=== PATIENT | male | born 1965 | race African-American/Black ===

== ENCOUNTER 2018-04-28 17:25 | Inpatient (IN) | payer OTHER ==
[2018-04-28 18:33] VITALS: BMI 21.4
--- NOTE | 2018-04-28 20:48 | HP ---
CIWA Score Nausea/Vomitin-No Nausea/No Vomiting Muscle Tremors: None Anxiety: 1-Mildly Anxious Agitation: 4-Moderately Restless Paroxysmal Sweats: No Perspiration Orientation: 2-Disoriented Date<2 days Tacttile Disturbances: 0-None Auditory Disturbances: 0-None Visual Disturbances: 0-None Headache: 0-None Present CIWA-Ar Total Score: 7 - Admission Criteria OAS Guidelines: Admission for Medically Managed Detox: Requires at least one of the followin. CIWA greater than 12 2. Seizures within the past 24 hours 3. Delirium tremens within the past 24 hours 4. Hallucinations within the past 24 hours 5. Acute intervention needed for co occurring medical disorder 6. Acute intervention needed for co occurring psychiatric disorder 7. Severe withdrawal that cannot be handled at a lower level of care (continued vomiting, continued diarrhea, abnormal vital signs) requiring intravenous medication and/or fluids 8. Patient presents the following: None of the above Admission Criteria Met: Admission criteria not met Admission ROS [facility] Chief Complaint: SEEKING DETOX FOR ALCOHOL DEPENDENCE Allergies/Adverse Reactions: Allergies Allergy/AdvReac Type Severity Reaction Status Date / Time No Known Drug Allergies Allergy Verified 04/28/18 19:55 History of Present Illness: 52 Y.O. MALE WITH HX/O ALCOHOLISM AND OPIOID DEPENDENCE HERE FOR DETOX. THIS IS CLIENTS FIRST ADMISSION HERE. HE WAS REFERRED BY HIS [facility], [facility].. CLIENT PRESENTS WITH ROLAN 0.245. CIWA 7. STATES CONTINUOUSLY DRINKS SO THAT HE DOES NOT WITHDRAW. HE IS KNOWN TO OTHER DETOX/REHAB SERVICES. LAST BEING 6 YEARS AGO. REPORTS LONGEST SOBRIETY 3 YEARS, DENIES ANY RECENT CLEANT TIME. HE ALSO DENIES HX/O DT'S, SEIZURES, BLACKOUTS, AVH, SI/HI. UNEMPLOYED, LIVES WITH FAMILY, DENIES LEGALS PMHX- DENIES PSYCH - DENIES MEDS- DENIES Exam Limitations: No Limitations - Ebola screening Have you traveled outside of the country in the last 21 days: No (N) Have you had contact with anyone from an Ebola affected area: No Have you been sick,other than usual withdrawal symptoms: No Do you have a fever: No - Review of Systems Constitutional: No Symptoms Reported EENT: reports: Dental Problems (MISSING TEETH) Respiratory: reports: No Symptoms reported Cardiac: reports: No Symptoms Reported GI: reports: No Symptoms Reported : reports: No Symptoms Reported Musculoskeletal: reports: Back Pain (CHRONIC) Integumentary: reports: No Symptoms Reported Neuro: reports: No Symptoms reported Endocrine: reports: No Symptoms Reported Hematology: reports: No Symptoms Reported Psychiatric: reports: Agitated (IRRITABLE) Other Systems: Reviewed and Negative Patient History - Patient Medical History Hx Anemia: No Hx Asthma: No Hx Chronic Obstructive Pulmonary Disease (COPD): No Hx Cancer: No Hx Cardiac Disorders: No Hx Congestive Heart Failure: No Hx Hypertension: No Hx Hypercholesterolemia: No Hx Pacemaker: No HX Cerebrovascular Accident: No Hx Seizures: No Hx Dementia: No Hx Diabetes: No Hx Gastrointestinal Disorders: No Hx Liver Disease: No Hx Genitourinary Disorders: No Hx Sexually Transmitted Disorders: No Hx Renal Disease (ESRD): No Hx Thyroid Disease: No Hx Human Immunodeficiency Virus (HIV): No Hx Hepatitis C: No Hx Depression: No Hx Suicide Attempt: No Hx Bipolar Disorder: No Hx Schizophrenia: No - Patient Surgical History Past Surgical History: No Hx Neurologic Surgery: No Hx Cataract Extraction: No Hx Cardiac Surgery: No Hx Lung Surgery: No Hx Breast Surgery: No Hx Breast Biopsy: No Hx Abdominal Surgery: No Hx Appendectomy: No Hx Cholecystectomy: No Hx Genitourinary Surgery: No Hx Section: No Hx Orthopedic Surgery: No Anesthesia Reaction: No - PPD History Previous Implant?: Yes Documented Results: Negative w/o proof Implanted On Prior [facility] Admission?: No PPD to be Administered?: Yes - Smoking Cessation Smoking history: Current every day smoker Have you smoked in the past 12 months: Yes Aproximately how many cigarettes per day: 5 Cigars Per Day: 0 Hx Chewing Tobacco Use: No Initiated information on smoking cessation: Yes 'Breaking Loose' booklet given: 04/28/18 - Substance & Tx. History Hx Alcohol Use: Yes Hx Substance Use: Yes Substance Use Type: Alcohol, Prescribed (MTD) Hx Substance Use Treatment: Yes ([facility]) - Substances Abused Alcohol Route: Oral Frequency: 3-6 times per week Amount used: 2.5 PINTS Age of first use: 10 Date of Last Use: 04/28/18 (1 PINT) Heroin Route: Inhalation Frequency: 1-3 times last 30 days Amount used: 2-3 bags Age of first use: 38 Date of Last Use: 04/27/18 Family Disease History - Family Disease History Family History: Denies Admission Physical Exam [facility] - Vital Signs Vital Signs: Vital Signs - 24 hr 04/28/18 18:28 Temperature 98.8 F Pulse Rate 101 H Respiratory 20 Rate Blood Pressure 139/72 - Physical General Appearance: Yes: Appropriately Dressed, Tremorous (FELT), Irritable HEENTM: Yes: EOMI, Normocephalic, Normal Voice, BUTCH, Pharynx Normal, Other ( POOR DENTITION) Respiratory: Yes: Chest Non-Tender, Lungs Clear, Normal Breath Sounds, No Respiratory Distress, No Accessory Muscle Use Neck: Yes: No masses,lesions,Nodules, Supple, Trachea in good position Breast: Yes: Breast Exam Deferred Cardiology: Yes: Regular Rhythm, S1, S2, Tachycardia Abdominal: Yes: Normal Bowel Sounds, Non Tender, Soft, Other (CONCAVE ABD) Genitourinary: Yes: Within Normal Limits Back: Yes: Other (ASYMETRICAL. 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, Fully Oriented, Alert, Motor Strength 5/5 Integumentary: Yes: Dry (EXTREMELY DRY DEHYDRATING FLAKING), Warm Lymphatic: Yes: Within Normal Limits - Diagnostic (1) Alcohol dependence with withdrawal, uncomplicated Current Visit: Yes Status: Acute (2) Methadone maintenance therapy patient Current Visit: Yes Status: Chronic (3) At risk for dehydration due to poor fluid intake Current Visit: Yes Status: Acute (4) Nicotine dependence Current Visit: Yes Status: Chronic Qualifiers: Nicotine product type: cigarettes Substance use status: uncomplicated Qualified Code(s): F17.210 - Nicotine dependence, cigarettes, uncomplicated (5) Mood disorder, drug-induced Current Visit: Yes Status: Suspected Cleared for Admission [facility] - Detox or Rehab [facility] Level of Care: Medically Supervised Detox Regimen/Protocol: Isela L[facility] for Rehab Admission: No [facility] Breath Alcohol Content Breath Alcohol Content: 0.245 Urine Drug Screen - Results Drug Screen Negative: No Urine Drug Screen Results: OPI-Opiates, MTD-Methadone
[2018-04-28] MEDS ORDERED: MAG HYDROX/AL HYDROX/SIMETH 30 ML UNIT-DOSE CUP PO PRN (21:03)
[2018-04-28] MEDS ORDERED: P-EPHED 60MG/TRIPROLIDI 2.5MG TABLET PO PRN (21:03)
[2018-04-28] MEDS ORDERED: chlordiazePOXIDE HCL 25 MG CAPSULE PO PRN (21:03)
[2018-04-28] MEDS ORDERED: ACETAMINOPHEN 325 MG TABLET (FP) PO PRN (21:03)
[2018-04-28] MEDS ORDERED: MENTHOL/PHENOL 1 EACH UD MM PRN (21:03)
[2018-04-28] MEDS ORDERED: LOPERAMIDE HCL 2 MG CAPSULE PO PRN (21:03)
[2018-04-28] MEDS ORDERED: hydrOXYzine PAMOATE 50 MG CAPSULE (FP) PO PRN (21:03)
[2018-04-28] MEDS ORDERED: guaiFENesin/D-METHORPHAN HB 10 ML UNIT-DOSE CUPS PO PRN (21:03)
[2018-04-28] MEDS ORDERED: NICOTINE POLACRILEX 2 MG GUM BC PRN (21:03)
[2018-04-28] MEDS ORDERED: MAGNESIUM HYDROX 2400MG/30ML ORAL SUSPENSION 30 ML CUP PO PRN (21:03)
[2018-04-28] MEDS ORDERED: MAGNESIUM CITRATE 300 ML BOTTLE PO PRN (21:03)
[2018-04-28] MEDS ORDERED: IBUPROFEN 400 MG TABLET (FP) PO PRN (21:03)
[2018-04-28] MEDS ORDERED: MELATONIN 5 MG TABLETS PO PRN (22:00)
[2018-04-28] MEDS: THIAMINE HCL 100 MG TABLET (FP) PO SCH (22:06)
[2018-04-28] MEDS: chlordiazePOXIDE HCL 25 MG CAPSULE PO SCH (22:06)
[2018-04-28 23:11] LABS: URINE APPEARANCE CLEAR; URINE BILIRUBIN NEGATIVE (<2.0 mg/dL); URINE COLOR YELLOW; URINE GLUCOSE (UA) NEGATIVE (NEGATIVE); URINE KETONE NEGATIVE (NEGATIVE); URINE LEUK ESTERASE NEGATIVE (NEGATIVE); URINE NITRITE NEGATIVE (NEGATIVE); URINE PROTEIN 1+ (NEGATIVE); URINE UROBILINOGEN NEGATIVE mg/dL (0.2-1.0)
[2018-04-28 23:27] LABS: EPI CELLS RARE /HPF (FEW); URINE HYALINE CAST 13 /lpf; URINE MUCUS RARE
[2018-04-29] MEDS: chlordiazePOXIDE HCL 25 MG CAPSULE PO SCH ×4 (05:18→22:13)
[2018-04-29] MEDS ORDERED: METHADONE HCL 10 MG TABLET PO ONE (09:05)
[2018-04-29 10:20] LABS: HEMATOCRIT 34.9 % (35.4-49); MCHC 34.4 g/dl (32.0-35.9); MEAN CELL VOLUME 87.2 fl (80-96); MEAN PLT VOLUME 8.6 fl (7.5-11.1); PLATELET COUNT 203 K/MM3 (134-434); RDW 14.9 % (11.9-15.9); WHITE BLOOD COUNT 6.5 K/mm3 (4.0-10.0)
[2018-04-29] MEDS: NICOTINE 14 MG/24 HOURS TOPICAL PATCH TD SCH (10:22)
[2018-04-29] MEDS: PRENATAL VITAMINS W/ FOLIC ACID TABLET (FP) PO SCH (10:22)
[2018-04-29 10:36] LABS: ALBUMIN 3.6 g/dl (3.4-5.0); ALK PHOS 91 U/L (45-117); ANION GAP 7 MMOL/L (8-16); BILIRUBIN,TOTAL 0.4 mg/dL (0.2-1); BLOOD UREA NITROGEN 20 mg/dL (7-18); CALCIUM 8.4 mg/dL (8.5-10.1); CHLORIDE 101 mmol/L (98-107); CO2 29 mmol/L (21-32); CREATININE 1.1 mg/dL (0.55-1.3); GLUCOSE,RANDOM 78 mg/dL (74-106); SGOT/AST 64 U/L (15-37); SGPT/ALT 44 U/L (13-61); SODIUM 137 mmol/L (136-145); TOT PROT 7.6 g/dl (6.4-8.2)
--- NOTE | 2018-04-29 12:06 | EKG ---
Test Reason : Blood Pressure : / mmHG Vent. Rate : 086 BPM Atrial Rate : 086 BPM P-R Int : 158 ms QRS Dur : 088 ms QT Int : 364 ms P-R-T Axes : 070 067 051 degrees QTc Int : 435 ms NORMAL SINUS RHYTHM NORMAL ECG NO PREVIOUS ECGS AVAILABLE Confirmed by CELSO YAP MD ([id number]) on 04/29/2018 12:06:07 PM Referred By: Confirmed By:CELSO YAP MD
--- NOTE | 2018-04-29 12:32 | PN ---
[facility] CIWA - CIWA Score Nausea/Vomitin-No Nausea/No Vomiting Muscle Tremors: 4-Moderate,w/Arms Extend Anxiety: 3 Agitation: 4-Moderately Restless Paroxysmal Sweats: 3 Orientation: 0-Oriented Tacttile Disturbances: 0-None Auditory Disturbances: 0-None Visual Disturbances: 0-None Headache: 0-None Present CIWA-Ar Total Score: 14 [facility] Progress Note (SOAP) Subjective: shakes sweats body aches irritable Objective: 04/29/18 12:30 Vital Signs Temperature 97.7 F 04/29/18 09:21 Pulse Rate 74 04/29/18 09:21 Respiratory Rate 18 04/29/18 09:21 Blood Pressure 110/68 04/29/18 09:21 O2 Sat by Pulse Oximetry (%) Laboratory Tests 04/28/18 04/29/18 04/29/18 22:10 07:30 07:30 WBC 6.5 RBC 4.00 Hgb 12.0 Hct 34.9 L MCV 87.2 MCH 30.0 MCHC 34.4 RDW 14.9 Plt Count 203 MPV 8.6 Sodium 137 Potassium 4.0 Chloride 101 Carbon Dioxide 29 Anion Gap 7 L BUN 20 H Creatinine 1.1 Creat Clearance w eGFR > 60 Random Glucose 78 Calcium 8.4 L Total Bilirubin 0.4 AST 64 H ALT 44 Alkaline Phosphatase 91 Total Protein 7.6 Albumin 3.6 Urine Color Yellow Urine Appearance Clear Urine pH 5.0 Ur Specific [place] 1.021 Urine Protein 1+ H Urine Glucose (UA) Negative Urine Ketones Negative Urine Blood Negative Urine Nitrite Negative Urine Bilirubin Negative Urine Urobilinogen Negative Ur Leukocyte Esterase Negative Urine WBC (Auto) 2 Urine RBC (Auto) <1 Ur Epithelial Cells Rare Hyaline Casts 13 Urine Mucus Rare RPR Titer 04/29/18 07:30 WBC RBC Hgb Hct MCV MCH MCHC RDW Plt Count MPV Sodium Potassium Chloride Carbon Dioxide Anion Gap BUN Creatinine Creat Clearance w eGFR Random Glucose Calcium Total Bilirubin AST ALT Alkaline Phosphatase Total Protein Albumin Urine Color Urine Appearance Urine pH Ur Specific [place] Urine Protein Urine Glucose (UA) Urine Ketones Urine Blood Urine Nitrite Urine Bilirubin Urine Urobilinogen Ur Leukocyte Esterase Urine WBC (Auto) Urine RBC (Auto) Ur Epithelial Cells Hyaline Casts Urine Mucus RPR Titer Nonreactive aaox3 ambulating no acute distress Assessment: 04/29/18 12:31 withdrawal sx Plan: continue detox increase fluids
[2018-04-29] MEDS: THIAMINE HCL 100 MG TABLET (FP) PO SCH (22:13)
[2018-04-30] MEDS: chlordiazePOXIDE HCL 25 MG CAPSULE PO SCH ×3 (05:13→16:54)
[2018-04-30] MEDS: METHADONE HCL 10 MG TABLET PO SCH (05:13)
--- NOTE | 2018-04-30 10:04 | PN ---
[facility] CIWA - CIWA Score Nausea/Vomitin-No Nausea/No Vomiting Muscle Tremors: 3 Anxiety: 2 Agitation: 3 Paroxysmal Sweats: 2 Orientation: 0-Oriented Tacttile Disturbances: 0-None Auditory Disturbances: 0-None Visual Disturbances: 0-None Headache: 0-None Present CIWA-Ar Total Score: 10 S Progress Note (SOAP) Subjective: agitation sweats body aches interrupted sleep Objective: 04/30/18 10:09 Vital Signs Temperature 97.2 F L 04/30/18 09:15 Pulse Rate 81 04/30/18 09:15 Respiratory Rate 18 04/30/18 09:15 Blood Pressure 118/72 04/30/18 09:15 O2 Sat by Pulse Oximetry (%) Laboratory Tests 04/28/18 04/29/18 04/29/18 22:10 07:30 07:30 WBC 6.5 RBC 4.00 Hgb 12.0 Hct 34.9 L MCV 87.2 MCH 30.0 MCHC 34.4 RDW 14.9 Plt Count 203 MPV 8.6 Sodium 137 Potassium 4.0 Chloride 101 Carbon Dioxide 29 Anion Gap 7 L BUN 20 H Creatinine 1.1 Creat Clearance w eGFR > 60 Random Glucose 78 Calcium 8.4 L Total Bilirubin 0.4 AST 64 H ALT 44 Alkaline Phosphatase 91 Total Protein 7.6 Albumin 3.6 Urine Color Yellow Urine Appearance Clear Urine pH 5.0 Ur Specific [place] 1.021 Urine Protein 1+ H Urine Glucose (UA) Negative Urine Ketones Negative Urine Blood Negative Urine Nitrite Negative Urine Bilirubin Negative Urine Urobilinogen Negative Ur Leukocyte Esterase Negative Urine WBC (Auto) 2 Urine RBC (Auto) <1 Ur Epithelial Cells Rare Hyaline Casts 13 Urine Mucus Rare RPR Titer 04/29/18 07:30 WBC RBC Hgb Hct MCV MCH MCHC RDW Plt Count MPV Sodium Potassium Chloride Carbon Dioxide Anion Gap BUN Creatinine Creat Clearance w eGFR Random Glucose Calcium Total Bilirubin AST ALT Alkaline Phosphatase Total Protein Albumin Urine Color Urine Appearance Urine pH Ur Specific [place] Urine Protein Urine Glucose (UA) Urine Ketones Urine Blood Urine Nitrite Urine Bilirubin Urine Urobilinogen Ur Leukocyte Esterase Urine WBC (Auto) Urine RBC (Auto) Ur Epithelial Cells Hyaline Casts Urine Mucus RPR Titer Nonreactive aaox3 ambulating no acute distress Assessment: 04/30/18 10:10 withdrawal sx Plan: continue detox increase fluids
[2018-04-30] MEDS: PRENATAL VITAMINS W/ FOLIC ACID TABLET (FP) PO SCH (10:05)
[2018-04-30] MEDS: NICOTINE 14 MG/24 HOURS TOPICAL PATCH TD SCH (10:05)
[2018-04-30] MEDS ORDERED: IBUPROFEN 400 MG TABLET (FP) PO PRN (12:49)
[2018-04-30] MEDS: THIAMINE HCL 100 MG TABLET (FP) PO SCH (22:08)
[2018-04-30] MEDS: chlordiazePOXIDE 5 MG CAPSULE PO SCH (22:08)
[2018-05-01] MEDS: chlordiazePOXIDE 5 MG CAPSULE PO SCH ×2 (05:47→10:22)
[2018-05-01] MEDS: METHADONE HCL 10 MG TABLET PO SCH (05:48)
[2018-05-01 10:09] VITALS: BP 111/66; PULSE 75; TEMP 97.5
[2018-05-01] MEDS: PRENATAL VITAMINS W/ FOLIC ACID TABLET (FP) PO SCH (10:22)
[2018-05-01] MEDS: NICOTINE 14 MG/24 HOURS TOPICAL PATCH TD SCH (10:22)
--- NOTE | 2018-05-01 11:56 | PN ---
[facility] Progress Note Note: pt refused to complete detox he prefers to go home. pt states he doesnt need to let anyone tell him what to do. pt signed out AMA.
--- NOTE | 2018-05-01 11:56 | DS ---
[facility] Detox Discharge Summary Admission Date: 04/28/18 - History Present History: Alcohol Dependence, MMTP - Physical Exam Results Vital Signs: Vital Signs Temperature 97.5 F L 05/01/18 10:09 Pulse Rate 75 05/01/18 10:09 Respiratory Rate 20 05/01/18 10:09 Blood Pressure 111/66 05/01/18 10:09 O2 Sat by Pulse Oximetry (%) - Treatment Hospital Course: Discharged Condition Good - Medication Discharge Medications: Ambulatory Orders NK [No Known Home Medication] 04/28/18 - AMA Did Patient Leave Against Medical Advice: Yes
[2018-05-01] MEDS ORDERED: chlordiazePOXIDE HCL 10 MG CAPSULE PO SCH (23:00)
== END 2018-05-01 12:08 | disposition left against medical advice (07) | DRG 770 ==
LOC: YASAS 17:25 → Y6N 20:24
PROC: HZ2ZZZZ Detoxification Services for Substance Abuse Treatment (ICD-10-PCS; principal; 2018-04-28)
DX: F10.230 Alcohol dependence with withdrawal, uncomplicated (principal); F11.20 Opioid dependence, uncomplicated; F17.210 Nicotine dependence, cigarettes, uncomplicated; F19.24 Other psychoactive substance dependence with psychoactive substance-induced mood disorder; R00.0 Tachycardia, unspecified
CPT/HCPCS: 36415; 80053; 81003; 81015; 85027; 86593; 93005; 93010